=== PATIENT | female | born 1950 | race Caucasian/White ===

== ENCOUNTER 2019-02-03 18:21 | Emergency (ER) | payer MEDICARE, MEDICAID ==
[~2019-02-03] VITALS: Ht 157.5 cm; Wt 84.0 kg
[2019-02-03 18:41] VITALS: BP 194/77
[2019-02-03] MEDS ORDERED: TETANUS, DIPHTHERIA, PERTUSSIS VAC/PF 0.5ML (>7YR OLD) IM ONE (21:45)
== END 2019-02-03 22:01 | disposition home or self-care (01) ==
LOC: ER 18:21
DX: S61.302A Unspecified open wound of right middle finger with damage to nail, initial encounter (principal); E11.9 Type 2 diabetes mellitus without complications; I10 Essential (primary) hypertension; W26.0XXA Contact with knife, initial encounter; Y93.89 Activity, other specified; Y92.89 Other specified places as the place of occurrence of the external cause; Y99.8 Other external cause status; Z88.0 Allergy status to penicillin
CPT/HCPCS: 90471; 90715; 99283

== ENCOUNTER 2019-07-01 05:40 | Emergency (ER) | payer MEDICARE, MEDICAID ==
[~2019-07-01] VITALS: Ht 157.5 cm; Wt 80.0 kg
[2019-07-01] MEDS ORDERED: GLIM4TAB2 PO (05:57)
[2019-07-01] MEDS ORDERED: AMLO5TAB88 PO (05:57)
[2019-07-01] MEDS ORDERED: SITA100T11 PO (05:58)
[2019-07-01] MEDS ORDERED: LABE200T28 PO (05:58)
[2019-07-01] MEDS ORDERED: METF-414 PO (05:59)
[2019-07-01] MEDS ORDERED: REPA2TAB8 PO (05:59)
[2019-07-01] MEDS ORDERED: LEVO100T9 PO (05:59)
[2019-07-01] MEDS ORDERED: VALS160T28 PO (06:00)
[2019-07-01] MEDS ORDERED: ACETAMINOPHEN 325MG TABLET PO STA (06:56)
[2019-07-01] MEDS ORDERED: SODIUM CHLORIDE 0.9% 1000ML BAG (SEPSIS BOLUS) IV ONE (07:00)
[2019-07-01 07:10] LABS: HEMATOCRIT. 32.3 % (36.0-48.0); HEMOGLOBIN. 10.9 g/dL (12.0-16.0); MEAN CORPUSCULAR HEMOGLOBIN 29.4 pg (28.0-32.0); MEAN CORPUSCULAR VOLUME 87.5 fL (81.0-99.0); PLATELET 174 x1000/uL (130-400); RED BLOOD CELL COUNT 3.69 mill/uL (4.2-5.4); RED CELL DISTRIBUTION WIDTH 13.8 % (11.6-14.6)
[2019-07-01 07:15] LABS: CHLORIDE 98 mEq/L (98-107)
[2019-07-01 07:28] LABS: INR 1.1; PROTHROMBIN TIME 10.9 sec (9.6-11.0)
[2019-07-01 07:33] LABS: CLARITY URINE CLOUDY (CLEAR); COLOR URINE YELLOW (YELLOW); KETONES URINE NEGATIVE (NEGATIVE); LEUKOCYTE ESTERASE URINE 3+ (NEGATIVE); NITRITE URINE POSITIVE (NEGATIVE); OCCULT BLOOD URINE 1+ (NEGATIVE); PROTEIN URINE 3+ (NEGATIVE); SPECIFIC GRAVITY URINE 1.015 (1.005-1.030); UROBILINOGEN URINE 0.2 E.U./dL (0.2-1.0)
[2019-07-01] MEDS ORDERED: LEVOFLOXACIN 750MG PREMIX 150 ML IV ONE (07:45)
[2019-07-01 07:48] LABS: PLATELET ESTIMATE NORMAL
[2019-07-01] MEDS ORDERED: DEXTROSE 50% WATER 50ML SYRINGE IV PRN (10:00)
[2019-07-01] MEDS ORDERED: ACETAMINOPHEN 325MG TABLET PO PRN (10:00)
[2019-07-01] MEDS ORDERED: KETOROLAC 30MG/ML VIAL IV PRN (10:00)
[2019-07-01] MEDS ORDERED: SODIUM CHLORIDE 0.9% 1,000 ML IV SCH (10:00)
[2019-07-01] MEDS ORDERED: ONDANSETRON HCL 4MG/2ML INJ IV PRN (10:00)
[2019-07-01] MEDS ORDERED: LEVOFLOXACIN 500MG PREMIX 100 ML IV SCH (10:00)
[2019-07-01] MEDS ORDERED: INSULIN GLARGINE UD 100 UNITS/ML SYR SUBCUT SCH ×2 (11:30→22:00)
[2019-07-01] MEDS ORDERED: BLOOD SUGAR DIAGNOSTIC STRIP TEST SCH (13:00)
[2019-07-01] MEDS ORDERED: INSULIN LISPRO 100 UNITS/ML SUBCUT SCH (13:20)
[2019-07-01 13:49] VITALS: BP 152/72
[2019-07-01] MEDS ORDERED: AMLODIPINE 5MG TABLET PO SCH (21:00)
[2019-07-02] MEDS ORDERED: LEVOTHYROXINE SODIUM 100MCG TABLET PO SCH (07:50)
== END 2019-07-01 14:05 | disposition short-term general hospital (02) ==
LOC: ER 05:40 → CANBEDREQ 14:43 → SUPCPDRO 07-02 10:59
DX: R65.20 Severe sepsis without septic shock (principal); N39.0 Urinary tract infection, site not specified; E11.9 Type 2 diabetes mellitus without complications; E87.1 Hypo-osmolality and hyponatremia; E44.1 Mild protein-calorie malnutrition; Z68.32 Body mass index [BMI] 32.0-32.9, adult; E03.9 Hypothyroidism, unspecified; I10 Essential (primary) hypertension; D64.9 Anemia, unspecified; E66.9 Obesity, unspecified; Z71.3 Dietary counseling and surveillance; Z79.4 Long term (current) use of insulin
CPT/HCPCS: 36415; 71045; 80053; 81003; 82962; 83605; 84145; 84484; 85025; 85610; 87040; 87077; 87086; 87186; 93005; 96361; 96372; 96374; 99291; J1815; J1956; J2405; J7030

== ENCOUNTER 2022-06-23 21:47 | Emergency (ER) | payer MEDICARE, MEDICAID ==
[~2022-06-23] VITALS: Ht 154.9 cm; Wt 82.0 kg
[~2022-06-23 21:47] MED LIST: AMLO5TAB88 PO; GLIM4TAB36 PO; LABE200T9 PO; LEVO100T9 PO; METF-414 PO; REPA2TAB8 PO; SITA100T11 PO; VALS160T28 PO
[2022-06-23] MEDS ORDERED: IBUPROFEN 400MG TABLET PO ONE (22:45)
[2022-06-23] MEDS ORDERED: CLINDAMYCIN HCL 150MG CAPSULE PO ONE (22:45)
[2022-06-23] MEDS ORDERED: ACETAMINOPHEN 325MG TABLET PO ONE (22:45)
[2022-06-23] MEDS ORDERED: IBUP-2028 MT (22:46)
[2022-06-23] MEDS ORDERED: CLIN-194 MT (22:46)
[2022-06-23] MEDS ORDERED: TOPUD PO (22:46)
[2022-06-23 23:20] VITALS: BP 167/68
== END 2022-06-23 23:22 | disposition home or self-care (01) ==
LOC: ER 21:47
DX: L03.114 Cellulitis of left upper limb (principal); R94.31 Abnormal electrocardiogram [ECG] [EKG]; I10 Essential (primary) hypertension; E11.9 Type 2 diabetes mellitus without complications; Z88.0 Allergy status to penicillin; Z79.84 Long term (current) use of oral hypoglycemic drugs; Z79.899 Other long term (current) drug therapy
CPT/HCPCS: 93005; 99284

== ENCOUNTER 2022-08-06 20:41 | Inpatient (IN) | payer BC, MEDICAID ==
[~2022-08-06] VITALS: Ht 152.4 cm; Wt 79.8 kg
[~2022-08-06 20:41] MED LIST changes: +CLIN-194 MT; +IBUP-2028 MT; +TOPUD PO
[2022-08-07] MEDS ORDERED: CLINDAMYCIN 600 MG in DEXTROSE 5% WATER 50 ML IV ONE (00:45)
[2022-08-07] MEDS ORDERED: SODIUM CHLORIDE 0.9% 1,000 ML IV ONE (00:45)
[2022-08-07] MEDS ORDERED: VANCOMYCIN 1G PREMIX 200 ML IV ONE (00:45)
[2022-08-07] MEDS: CLINDAMYCIN 600MG PREMIX 50 ML IV NR ×2 (01:00→04:24)
[2022-08-07 01:27] LABS: BASOPHILS % 0.3 % (0.0-2.0); EOSINOPHILS % 0.6 % (0.0-5.0); HEMATOCRIT. 35.2 % (36.0-48.0); LYMPHOCYTES % 20.8 % (20.0-50.0); MEAN CORPUSCULAR HEMOGLOBIN 29.3 pg (28.0-32.0); MEAN CORPUSCULAR VOLUME 86.1 fL (81.0-99.0); MEAN PLATELET VOLUME 8.9 fl (7.4-10.4); NEUTROPHILS % 70.3 % (40.0-76.0); PLATELET 365 x1000/uL (130-400); RED BLOOD CELL COUNT 4.09 mill/uL (4.2-5.4); RED CELL DISTRIBUTION WIDTH 15.6 % (11.6-14.6)
[2022-08-07 01:34] LABS: CHLORIDE 102 mEq/L (98-107)
[2022-08-07 14:09] VITALS: BP 166/71
[2022-08-07] MEDS ORDERED: LEVO88TA7 MT (14:36)
[2022-08-07] MEDS ORDERED: AMLO10TA80 MT (14:36)
[2022-08-07] MEDS ORDERED: ATOR10TA69 MT (14:36)
[2022-08-07] MEDS ORDERED: LOSA-20 MT (14:36)
[2022-08-07] MEDS ORDERED: GLIM2TAB30 MT (14:36)
[2022-08-07] MEDS ORDERED: METF-416 MT (14:36)
[2022-08-07 15:22] VITALS: BP 166/71
[2022-08-07] MEDS ORDERED: ACETAMINOPHEN 325MG TABLET PO PRN (15:45)
[2022-08-07] MEDS ORDERED: HYDROCODONE/ACETAMINOPHEN 5/325MG TABLET PO PRN (15:45)
[2022-08-07] MEDS ORDERED: DEXTROSE 50% WATER 50ML SYRINGE IV PRN (15:45)
[2022-08-07] MEDS ORDERED: ONDANSETRON HCL 4MG/2ML INJ IV PRN (15:45)
[2022-08-07 16:00] VITALS: BP 154/68
[2022-08-07] MEDS ORDERED: NALOXONE HCL 0.4MG/ML VIAL IV PRN (16:00)
[2022-08-07] MEDS: LOSARTAN POTASSIUM 100 MG TABLET PO SCH (16:19)
[2022-08-07] MEDS ORDERED: *PATIENT'S OWN MEDICATION STORAGE XX SCH (16:45)
[2022-08-07] MEDS: BLOOD SUGAR DIAGNOSTIC STRIP TEST SCH ×2 (17:16→21:00)
[2022-08-07] MEDS: INSULIN LISPRO 100 UNITS/ML SUBCUT SCH ×2 (17:34→21:03)
[2022-08-07] MEDS: LEVOFLOXACIN 500MG PREMIX 100 ML IV SCH (18:28)
[2022-08-07 20:00] VITALS: BP 111/57
[2022-08-08] VITALS: BP 119/60
[2022-08-08 04:00] VITALS: BP 123/80
[2022-08-08] MEDS: BLOOD SUGAR DIAGNOSTIC STRIP TEST SCH ×4 (06:27→20:45)
[2022-08-08] MEDS: LEVOTHYROXINE SODIUM 100MCG TABLET PO SCH (06:38)
[2022-08-08] MEDS: INSULIN LISPRO 100 UNITS/ML SUBCUT SCH ×4 (07:50→20:45)
[2022-08-08 08:00] VITALS: BP 165/69
[2022-08-08] MEDS ORDERED: VANCOMYCIN 1GM PMX (XELLIA) 200 ML IV SCH (09:00)
[2022-08-08] MEDS: AMLODIPINE 10MG TABLET PO SCH (09:35)
[2022-08-08] MEDS: LOSARTAN POTASSIUM 100 MG TABLET PO SCH (09:35)
[2022-08-08 12:00] VITALS: BP 151/62
[2022-08-08] MEDS: FUROSEMIDE 40MG/4ML VIAL IVP SCH (13:25)
[2022-08-08 16:00] VITALS: BP 133/57
[2022-08-08] MEDS: LEVOFLOXACIN 500MG PREMIX 100 ML IV SCH (16:36)
[2022-08-08 20:00] VITALS: BP 155/57
[2022-08-09] VITALS: BP 146/56
[2022-08-09 04:00] VITALS: BP 128/56
[2022-08-09] MEDS: LEVOTHYROXINE SODIUM 100MCG TABLET PO SCH (06:28)
[2022-08-09] MEDS: BLOOD SUGAR DIAGNOSTIC STRIP TEST SCH ×3 (06:33→17:20)
[2022-08-09 07:41] LABS: HEMATOCRIT 33.2 % (36.0-48.0); HEMOGLOBIN 11.2 g/dL (12.0-16.0); MEAN CORPUSCULAR HEMOGLOBIN 29.1 pg (28.0-32.0); MEAN CORPUSCULAR VOLUME 86.4 fL (81.0-99.0); PLATELET 304 x1000/uL (130-400); RED BLOOD CELL COUNT 3.84 mill/uL (4.2-5.4); RED CELL DISTRIBUTION WIDTH 15.6 % (11.6-14.6)
[2022-08-09 08:00] VITALS: BP 147/60
[2022-08-09 08:24] LABS: CHLORIDE 102 mEq/L (98-107)
[2022-08-09] MEDS: LOSARTAN POTASSIUM 100 MG TABLET PO SCH (09:43)
[2022-08-09] MEDS: FUROSEMIDE 40MG/4ML VIAL IVP SCH (09:43)
[2022-08-09] MEDS: AMLODIPINE 10MG TABLET PO SCH (09:43)
[2022-08-09] MEDS ORDERED: VANCOMYCIN 1GM PMX (XELLIA) 200 ML IV SCH (10:00)
[2022-08-09] MEDS ORDERED: LEVOFLOXACIN 500MG TABLET PO SCH (11:00)
[2022-08-09] MEDS: INSULIN LISPRO 100 UNITS/ML SUBCUT SCH ×3 (11:08→18:29)
[2022-08-09 12:00] VITALS: BP 144/60
[2022-08-09] MEDS ORDERED: LEVO500T90 MT (15:03)
[2022-08-09] MEDS ORDERED: SULF1TAB48 MT (15:03)
[2022-08-09 16:00] VITALS: BP 139/54
[2022-08-09 19:35] VITALS: BP 139/54
== END 2022-08-09 20:33 | disposition home or self-care (01) | DRG 637 ==
LOC: ER 20:41 → EDBEDREQTM 08-07 02:15 → EDBEDREQ 08-07 02:15 → ENRESERV 08-07 12:48 → 6EST 08-07 14:28
PROVIDERS: ADMIT Internal Medicine; ATTEND Internal Medicine
DX: E11.621 Type 2 diabetes mellitus with foot ulcer (principal); I50.43 Acute on chronic combined systolic (congestive) and diastolic (congestive) heart failure; L03.115 Cellulitis of right lower limb; L03.116 Cellulitis of left lower limb; L97.519 Non-pressure chronic ulcer of other part of right foot with unspecified severity; E66.9 Obesity, unspecified; L84 Corns and callosities; I11.0 Hypertensive heart disease with heart failure; E03.9 Hypothyroidism, unspecified; E11.628 Type 2 diabetes mellitus with other skin complications; Z88.0 Allergy status to penicillin; Z68.34 Body mass index [BMI] 34.0-34.9, adult
CPT/HCPCS: 36415; 73630; 80048; 80053; 80202; 82962; 83605; 83880; 85025; 85027; 93306; 93970; 99285; J1815; J1940; J1956; J3370; J3490; J7030; J7060

== ENCOUNTER 2024-03-10 16:44 | Emergency (ER) | payer MEDICARE, MEDICAID ==
[~2024-03-10] VITALS: Ht 152.4 cm; Wt 78.0 kg
[~2024-03-10 16:44] MED LIST changes: +AMLO10TA80 MT; -AMLO5TAB88 PO; +ATOR10TA69 MT; -CLIN-194 MT; +GLIM2TAB30 MT; -GLIM4TAB36 PO; -LABE200T9 PO; +LEVO-65 MT; -LEVO100T9 PO; +LEVO88TA7 MT; +LOSA-20 MT; -METF-414 PO; +METF-416 MT; -REPA2TAB8 PO; +SULF1TAB48 MT; -VALS160T28 PO
[2024-03-10 16:57] VITALS: O2SAT 99
[2024-03-10 18:09] LABS: BASOPHILS % 0.4 % (0.0-2.0); EOSINOPHILS % 1.1 % (0.0-5.0); HEMATOCRIT. 35.5 % (36.0-48.0); HEMOGLOBIN. 12.1 g/dL (12.0-16.0); LYMPHOCYTES % 20.1 % (20.0-50.0); MEAN CORPUSCULAR VOLUME 88.3 fL (81.0-99.0); MEAN PLATELET VOLUME 9.2 fl (7.4-10.4); MONOCYTES % 5.8 % (2.0-8.0); NEUTROPHILS % 72.6 % (40.0-76.0); PLATELET 286 x1000/uL (130-400); RED BLOOD CELL COUNT 4.02 mill/uL (4.2-5.4); RED CELL DISTRIBUTION WIDTH 14.5 % (11.6-14.6); WHITE BLOOD COUNT 9.7 x1000/uL (4.5-11.0)
[2024-03-10 18:19] LABS: CHLORIDE 103 mEq/L (98-107); SODIUM 138 mEq/L (136-145)
[2024-03-10 18:20] LABS: CALCIUM 10.3 mg/dL (8.7-10.4); CARBON DIOXIDE 25 mEq/L (21-32); PROTHROMBIN TIME 10.8 sec (9.6-11.0)
[2024-03-10 18:25] LABS: CREATININE 0.8 mg/dL (0.6-1.0); GLUCOSE 177 mg/dL (70-105); UREA NITROGEN BLOOD 13 mg/dL (9-23)
[2024-03-10] MEDS ORDERED: SULF1TAB48 MT (22:42)
[2024-03-10] MEDS ORDERED: T3 PO (22:42)
[2024-03-10] MEDS: SULFAMETHOXAZOLE/TRIMETHOPRIM 800/160MG TABLET PO ONE (22:56)
[2024-03-10] MEDS: ACETAMINOPHEN WITH CODEINE 300/30MG TABLET PO ONE (22:56)
[2024-03-10 22:57] VITALS: BP 130/95; PULSE 68; RESP 15; TEMP 98.6
== END 2024-03-10 23:06 | disposition home or self-care (01) ==
LOC: ER 16:44
DX: L03.116 Cellulitis of left lower limb (principal); I87.8 Other specified disorders of veins; E11.9 Type 2 diabetes mellitus without complications; I10 Essential (primary) hypertension; Z00.00 Encounter for general adult medical examination without abnormal findings; Z88.0 Allergy status to penicillin; Z79.899 Other long term (current) drug therapy; Z86.39 Personal history of other endocrine, nutritional and metabolic disease
CPT/HCPCS: 36415; 73630; 80048; 85025; 99284